=== PATIENT | male | born 1980 ===

== ENCOUNTER 2020-03-20 14:44 | Emergency (ER) | payer SELFPAY ==
[2020-03-20 14:53] VITALS: BP 143/80
[2020-03-20] MEDS ORDERED: LIDOCAINE-MPF (1%) 10 MG/1 ML VIAL 5 ML INFILTRATI ONE (16:22)
[2020-03-20] MEDS ORDERED: oxyCODONE 5 MG TAB PO ONE (16:22)
[2020-03-20] MEDS ORDERED: BUPIVACAINE/PF (0.5%) 5 MG/1 ML 10 ML VIAL INFILTRATI ONE (16:22)
[2020-03-20] MEDS ORDERED: SODIUM CHLORIDE IRRI 500 ML 500 ML IR ONE (16:41)
[2020-03-20] MEDS ORDERED: SODIUM CHLORIDE 0.9% IRR 500 ML BOTTLE IR ONE (16:41)
--- NOTE | 2020-03-20 16:53 | XRay Report ---
RIGHT HAND 3 VIEWS INDICATION / CLINICAL INFORMATION: Right index finger laceration on metal one and a half hours ago. COMPARISON: None available. FINDINGS: BONES / JOINT(S): No acute fracture or subluxation. No significant arthritis. SOFT TISSUES: I do not identify a radiopaque foreign body. ADDITIONAL FINDINGS: None. Signer Name: Ernesto Loya MD Signed: 03/20/2020 4:48 PM Workstation Name: [id number]
--- NOTE | 2020-03-20 17:20 | Emergency Department Report ---
- General Chief Complaint: Wound/Laceration Stated Complaint: RT INDEX FINGER/LAC PAIN Time Seen by Provider: 03/20/20 16:07 Source: patient, chiropractic neurologist (ene, patient financial services sales representative) Mode of arrival: Ambulatory Limitations: Language Barrier - History of Present Illness Initial Comments: Mozambican interpretation by Ene, patient financial services sales representative Patient is a 39-year-old male who presents emergency room with complaints of a laceration to the right finger that occurred around 1:30 PM today. He states he was cleaning some things up out of the yard and cut himself against a piece of metal. He states his tetanus immunization is up-to-date. He is able to move the finger with some discomfort. He denies any numbness or weakness. He denies any past medical history or allergies to medications. - Related Data Previous Rx's Medication Instructions Recorded Last Taken Type Acetaminophen/Codeine [Tylenol 1 tab PO Q6H PRN #10 tab 03/20/20 Unknown Rx /Codeine # 3 tab] Sulfamethoxazole/Trimethoprim 1 each PO BID 7 Days #14 tablet 03/20/20 Unknown Rx [Bactrim DS TAB] Allergies Allergy/AdvReac Type Severity Reaction Status Date / Time No Known Allergies Allergy Verified 03/20/20 14:47 ED Review of Systems ROS: Stated complaint: RT INDEX FINGER/LAC PAIN Other details as noted in HPI Comment: All other systems reviewed and negative ED Past Medical Hx - Past Medical History Previous Medical History?: No - Surgical History Past Surgical History?: Yes 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 - Social History Smoking Status: Never Smoker Substance Use Type: None - Medications Home Medications: Home Medications Medication Instructions Recorded Confirmed Last Taken Type Acetaminophen/Codeine [Tylenol 1 tab PO Q6H PRN #10 tab 03/20/20 Unknown Rx /Codeine # 3 tab] Sulfamethoxazole/Trimethoprim 1 each PO BID 7 Days #14 tablet 03/20/20 Unknown Rx [Bactrim DS TAB] ED Physical Exam - General Limitations: Language Barrier General appearance: alert, in no apparent distress - Head Head exam: Present: atraumatic, normocephalic - Eye Eye exam: Present: normal appearance - ENT ENT exam: Present: mucous membranes moist - Extremities Exam Extremities exam: Present: other (2.5 cm jagged laceration present to the right index finger on the dorsal surface with small amount of bleeding present, no visualized foreign body, ttp and edema present to the right index PIP, pt is not able to fully flex the right index finger, FROM of all other digits and hand, neurovasculalry intact) - Neurological Exam Neurological exam: Present: alert, oriented X3 - Psychiatric Psychiatric exam: Present: normal affect, normal mood - Skin Skin exam: Present: warm, dry ED Course Vital Signs 03/20/20 14:52 Temperature 98.1 F Pulse Rate 94 H Respiratory 13 Rate Blood Pressure 143/80 O2 Sat by Pulse 97 Oximetry - Laceration /Wound Repair Right Dorsal Finger Wound Location: upper extremity (dorsal surface of the right index finger) Wound Length (cm): 3 (2.5 cm total) Wound's Depth, Shape: irregular Wound Explored: clean Irrigated w/ Saline (ccs): 500 Betadine Prep?: Yes Anesthesia: 1% Lidocaine, 0.5% Sensorcaine Volume Anesthetic (ccs): 6 Wound Debrided: extensive Wound Repaired With: sutures Suture Size/Type: 4:0, proline Number of Sutures: 7 Layer Closure?: No Sterile Dressing Applied?: Yes Progress: Wound irrigated with saline and thoroughly scrubbed with Betadine, no foreign body on exploration, digital block performed using 6 cc of 50-50 mix of 1% lidocaine without epinephrine and 0.5% bupivacaine without epinephrine, Betadine prep again, sterile gloves worn, sterile drapes applied, 4-0 Prolene used for skin closure, 7 sutures placed, patient tolerated well, no complications, bleeding controlled, sterile dressing applied, finger splint applied, patient remained neurovascularly intact ED Medical Decision Making - Radiology Data Radiology results: report reviewed RIGHT HAND 3 VIEWS INDICATION / CLINICAL INFORMATION: Right index finger laceration on metal one and a half hours ago. COMPARISON: None available. FINDINGS: BONES / JOINT(S): No acute fracture or subluxation. No significant arthritis. SOFT TISSUES: I do not identify a radiopaque foreign body. ADDITIONAL FINDINGS: None. Signer Name: Yola Loya MD Signed: 03/20/2020 4:48 PM Workstation Name: [id number] Transcribed By: RT Dictated By: Yola Loya MD Electronically Authenticated By: Yola Loya MD Signed Date/Time: 03/20/201647 DD/ 46 TD/TT: - Medical Decision Making Mozambican interpretation by Ene, patient financial services sales representative Patient is a 39-year-old male who presents emergency room with complaints of a laceration to the right finger that occurred around 1:30 PM today. He states he was cleaning some things up out of the yard and cut himself against a piece of metal. He states his tetanus immunization is up-to-date. He is able to move the finger with some discomfort. He denies any numbness or weakness. He denies any past medical history or allergies to medications. VSS. on exam: 2.5 cm jagged laceration present to the right index finger on the dorsal surface with small amount of bleeding present, no visualized foreign body, ttp and edema present to the right index PIP, pt is not able to fully flex the right index finger, FROM of all other digits and hand, neurovasculalry intact. XR right hand: No acute fracture or subluxation. No significant arthritis. SOFT TISSUES: I do not identify a radiopaque foreign body. Wound irrigated with saline and thoroughly scrubbed with Betadine and repaired per procedure note. Due to difficulty with fully flexing the finger, patient placed in finger splint, remained neurovascularly intact, discussed with patient the importance of follow-up with orthopedic for evaluation of tendon or ligament injury. Patient verbalized understanding. Patient given prescription for Bactrim and Tylenol with codeine. advised pt Please take medication as prescribed. Do not drive or operate machinery while taking pain medication. Please keep area clean, dry, covered. May wash with soap and water and immediately dry. No hot tub, no pool, no soaking in water. Sutures need to be removed in 10 days. Please follow-up with an orthopedic doctor. It is very important to follow-up with the orthopedic doctor to prevent permanent disability of your finger. Return to the emergency room for any new or worsening symptoms. Critical care attestation.: If time is entered above; I have spent that time in minutes in the direct care of this critically ill patient, excluding procedure time. ED Disposition Clinical Impression: Laceration of right index finger Qualifiers: Encounter type: initial encounter Damage to nail status: without damage Foreign body presence: without foreign body Qualified Code(s): S61.210A - Laceration without foreign body of right index finger without damage to nail, initial encounter Finger sprain Qualifiers: Encounter type: initial encounter Finger: index finger Sprain of finger site: interphalangeal joint Laterality: right Qualified Code(s): S63.630A - Sprain of interphalangeal joint of right index finger, initial encounter Disposition: TO HOME OR SELFCARE Is pt being admited?: No Does the pt Need Aspirin: No Condition: Stable Instructions: Suture Care (ED), Laceration (ED), Finger Sprain (ED) Additional Instructions: Please take medication as prescribed. Do not drive or operate machinery while taking pain medication. Please keep area clean, dry, covered. May wash with soap and water and immediately dry. No hot tub, no pool, no soaking in water. Sutures need to be removed in 10 days. Please follow-up with an orthopedic doctor. It is very important to follow-up with the orthopedic doctor to prevent permanent disability of your finger. Return to the emergency room for any new or worsening symptoms. Por favor tome la medicacin segn lo prescrito. No conduzca ni maneje maquinaria mientras est tomando analgsicos. Mantenga el leatha limpia, seca y cubierta. Puede denilson con agua y jabn e inmediatamente secar. Sin baera de hidromasaje, sin piscina, sin remojo en agua. Las suturas deben retirarse en 10 nieves. Gissell un seguimiento con un mdico ortopdico. Es muy importante hacer un seguimiento con el mdico ortopdico para prevenir la discapacidad permanente de iptts dedo. Regrese a la deb de emergencias por cualquier sntoma nuevo o que empeore. Prescriptions: Sulfamethoxazole/Trimethoprim [Bactrim DS TAB] 1 each PO BID 7 Days #14 tablet Acetaminophen/Codeine [Tylenol /Codeine # 3 tab] 1 tab PO Q6H PRN #10 tab PRN Reason: Pain , Severe (7-10) Referrals: YOLA LAWSON MD [Staff Physician] - 3-5 Days [facility] [Provider Group] - 3-5 Days Time of Disposition: 18:04 Print Language: [place]
== END 2020-03-20 18:53 | disposition home or self-care (01) ==
LOC: ED 14:44
DX: S61.210A Laceration without foreign body of right index finger without damage to nail, initial encounter (principal); Z98.890 Other specified postprocedural states; Z79.899 Other long term (current) drug therapy; W26.8XXA Contact with other sharp object(s), not elsewhere classified, initial encounter; Y93.89 Activity, other specified; Y92.89 Other specified places as the place of occurrence of the external cause; Y99.8 Other external cause status

== ENCOUNTER 2020-03-26 07:39 | Emergency (ER) | payer OTHER ==
[2020-03-26 07:46] VITALS: BP 129/93
[2020-03-26] MEDS ORDERED: ceFAZolin 1 GM VIAL IM ONE (08:11)
[2020-03-26] MEDS ORDERED: KETOROLAC 60 MG/2 ML INJ IM ONE (08:11)
--- NOTE | 2020-03-26 08:17 | Emergency Department Report ---
ED Recheck HPI - General Chief Complaint: Recheck/Abnormal Lab/Rx Stated Complaint: LFT MID FINGER/PAIN Time Seen by Provider: 03/26/20 08:09 Source: patient Mode of arrival: Ambulatory Limitations: Language Barrier - History of Present Illness Initial Comments: Patient is a 39-year-old male that comes to the ER after being sutured here on the eighth. He had sutures placed in his finger and he states that the pain was so bad last night it kept him up all night. Patient states he has been changing his dressing and he has been taking medications prescribed to him when here on the eighth. Patient states that he is tried to call Dr. Ocampo's office but nobody is answering the phone. Patient denies fever or chills. Vital signs are normal in the ER. MD Complaint: wound re-check -: Gradual - Related Data Previous Rx's Medication Instructions Recorded Last Taken Type Ibuprofen [Motrin] 800 mg PO Q8HR PRN #30 tablet 03/26/20 Unknown Rx cephALEXin [Keflex] 500 mg PO Q12HR #20 cap 03/26/20 Unknown Rx Allergies Allergy/AdvReac Type Severity Reaction Status Date / Time No Known Allergies Allergy Verified 03/26/20 07:40 ED Review of Systems ROS: Stated complaint: LFT MID FINGER/PAIN Other details as noted in HPI Comment: All other systems reviewed and negative ED Past Medical Hx - Past Medical History Previous Medical History?: No - Surgical History Past Surgical History?: Yes 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 - Social History Smoking Status: Never Smoker Substance Use Type: None - Medications Home Medications: Home Medications Medication Instructions Recorded Confirmed Last Taken Type Ibuprofen [Motrin] 800 mg PO Q8HR PRN #30 tablet 03/26/20 Unknown Rx cephALEXin [Keflex] 500 mg PO Q12HR #20 cap 03/26/20 Unknown Rx ED Physical Exam - General Limitations: Language Barrier General appearance: alert, in no apparent distress - Head Head exam: Present: atraumatic, normocephalic - Eye Eye exam: Present: normal appearance - ENT ENT exam: Present: mucous membranes moist - Neck Neck exam: Present: normal inspection - Respiratory Respiratory exam: Present: normal lung sounds bilaterally. Absent: respiratory distress - Cardiovascular Cardiovascular Exam: Present: regular rate, normal rhythm. Absent: systolic murmur, diastolic murmur, rubs, gallop - GI/Abdominal GI/Abdominal exam: Present: soft, normal bowel sounds - Rectal Rectal exam: Present: deferred - Extremities Exam Extremities exam: Present: normal inspection - Back Exam Back exam: Present: normal inspection - Neurological Exam Neurological exam: Present: alert, oriented X3 - Psychiatric Psychiatric exam: Present: normal affect, normal mood - Skin Skin exam: Present: warm, dry, intact, normal color. Absent: rash - Expanded Skin Exam Expanded 1 - finger lac- finger red, swollen, pain when moving and if arm not elevated; no purulent drainage noted. wound covered in old blood. pt states hes been changing dressing. no fx on xray noted. ED Course Vital Signs 03/26/20 07:44 Temperature 98.0 F Pulse Rate 74 Respiratory 18 Rate Blood Pressure 129/93 O2 Sat by Pulse 100 Oximetry ED Recheck MDM - Core Measures Measure Exclusions: not indicated - Differential Diagnosis Wound Recheck wound infection - Medical Decision Making EMR from prior visit reviewed: Including imaging Bandage has been removed from the wound. Sutures are intact. Finger is swollen. There is rapid cap refill. I see no drainage from the wound itself. There is blood and scabbing over the sutures. Patient does have distal sensation. The wound was cleaned and redressed Patient was given a gram of IM Ancef Patient was educated using an upholsterer helper on how to care for his wound. He needs to clean it keep it iced and elevated. I have changed him to Keflex outpatient for the Bactrim he is on does not seem to be mitigating infection. Patient does state that he is taking it. Patient has been educated that he needs to follow-up with an orthopedic doctor on discharge. Have given him several options. Given no purulent drainage and range of motion/sensation intact I have not open to the wound. Patient has no fever or chills. There is no streaking up his arm. His hand does not hurt the pain is localized around the finger laceration. Patient being discharged home with detailed follow-up plan the plan has been reviewed with him in German and he has been given written instructions Vital Signs 03/26/20 07:44 Temperature 98.0 F Pulse Rate 74 Respiratory 18 Rate Blood Pressure 129/93 O2 Sat by Pulse 100 Oximetry Critical care attestation.: If time is entered above; I have spent that time in minutes in the direct care of this critically ill patient, excluding procedure time. ED Disposition Clinical Impression: Finger pain, Laceration of finger with infection Laceration of right index finger Qualifiers: Encounter type: subsequent encounter Disposition: - TO HOME OR SELFCARE Is pt being admited?: No Does the pt Need Aspirin: No Condition: Stable Instructions: Suture Care (ED) Additional Instructions: keep wound clean with soap and water neosporin - over the counter- with dressing change every 12 hours rest/elevate and ice finger follow up with ortho MD referrals below Prescriptions: cephALEXin [Keflex] 500 mg PO Q12HR #20 cap Ibuprofen [Motrin] 800 mg PO Q8HR PRN #30 tablet PRN Reason: Pain, Moderate (4-6) Referrals: YOLA OCAMPO MD [Staff Physician] - 3-5 Days JAYASHREE CROUCH MD [Staff Physician] - 3-5 Days Time of Disposition: 08:14 Print Language: [place]GR[place]
== END 2020-03-26 09:16 | disposition home or self-care (01) ==
LOC: ED 07:39
DX: S61.210D Laceration without foreign body of right index finger without damage to nail, subsequent encounter (principal); L08.9 Local infection of the skin and subcutaneous tissue, unspecified; Z89.022 Acquired absence of left finger(s); Z79.1 Long term (current) use of non-steroidal anti-inflammatories (NSAID); Z79.899 Other long term (current) drug therapy; X58.XXXD Exposure to other specified factors, subsequent encounter
CPT/HCPCS: 96372; 99282; J0690; J1885